=== PATIENT | female | born 1970 | race Caucasian/White ===

== ENCOUNTER 2017-05-02 11:23 | Day surgery (SDC) | payer OTHER ==
[2017-04-30 17:42] VITALS: BMI 27.4
[2017-05-02] MEDS ORDERED: PROPOFOL 20 ML ONE (11:38)
[2017-05-02 12:39] VITALS: TEMP 98.1
[2017-05-02 15:25] VITALS: PULSE 80
[2017-05-02 15:27] VITALS: BP 121/80
--- NOTE | 2017-05-04 14:41 | PATH ---
Surgical Pathology Report Patient Name: LESLEY ELENA [facility]. Rec. #: [id number] /Age/Gender: 1970 (Age: 46) / F Account: [id number] Location: [facility] Taken: 05/02/2017 Received: 05/02/2017 Reported: 05/04/2017 Physicians: Mallory Zelaya M.D. Specimen(s) Received A: BX DUODENUM B: BX ANTRUM C: BX GE JUNCTION Clinical History Preoperative diagnosis: Dyspepsia, pain Postoperative diagnosis: Celiac disease, small antral ulcers Final Diagnosis A. DUODENUM, BIOPSY: DUODENAL MUCOSA WITH NO PATHOLOGIC CHANGES. NO HISTOLOGIC EVIDENCE OF GLUTEN SENSITIVE ENTEROPATHY (CELIAC SPRUE) IDENTIFIED. B. STOMACH, ANTRUM, BIOPSY: MILD REACTIVE GASTROPATHY. IMMUNOSTAIN FOR H. PYLORI IS NEGATIVE. C. GE JUNCTION, BIOPSY: GASTRIC TYPE MUCOSA WITH FOCAL MILD CHRONIC INFLAMMATION. NO INTESTINAL METAPLASIA IDENTIFIED (NO OLIVARES'S IDENTIFIED). Electronically Signed Nick Colon M.D. Gross Description A. Received in formalin, labeled "duodenum" are 2 cash, irregular portions of soft tissue measuring 0.2 and 0.3 cm. in greatest dimension. The specimens are submitted in toto in one cassette. B. Received in formalin, labeled "antrum" are 2 cash, irregular portions of soft tissue measuring 0.2 and 0.7 cm. in greatest dimension. The specimens are submitted in toto in one cassette. C. Received in formalin, labeled "GE junction" is a cash, irregular portion of soft tissue measuring 0.3 cm. in greatest dimension. The specimen is submitted in toto in one cassette. 05/03/201705/03/2017
== END 2017-05-02 13:55 | disposition home or self-care (01) ==
LOC: FASU 11:23
PROVIDERS: ATTEND Internal Medicine Gastroenterology
PROC: 0DB48ZX Excision of Esophagogastric Junction, Via Natural or Artificial Opening Endoscopic, Diagnostic (ICD-10-PCS; 2017-05-02)
PROC: 0DB98ZX Excision of Duodenum, Via Natural or Artificial Opening Endoscopic, Diagnostic (ICD-10-PCS; principal; 2017-05-02 12:52)
PROC: 0DB68ZX Excision of Stomach, Via Natural or Artificial Opening Endoscopic, Diagnostic (ICD-10-PCS; 2017-05-02 12:52)
DX: K25.9 Gastric ulcer, unspecified as acute or chronic, without hemorrhage or perforation (principal); K31.9 Disease of stomach and duodenum, unspecified; R10.13 Epigastric pain; R10.9 Unspecified abdominal pain
CPT/HCPCS: 84703; 88305-TC; 88342-TC